=== PATIENT | male | born 1980 ===

== ENCOUNTER 2017-05-27 18:03 | Emergency (ER) | payer BC ==
[2017-05-27 18:10] VITALS: BP 113/76
[2017-05-27] MEDS ORDERED: Ibuprofen TAB* 600 MG PO ONE (18:19)
[2017-05-27] MEDS ORDERED: Tetan/Diph/Pertus SYR(Tdap)* 0.5 ML SYR(BOOSTRIX) use SYR IM ONE (18:19)
--- NOTE | 2017-05-27 18:24 | UC ---
Laceration HPI - HPI Summary HPI Summary: Patient was hit with a chainsaw on the front of the left knee. large laceration sccross the patella, small puncture wound in medial quad - History Of Current Complaint Chief Complaint: UCLaceration Stated Complaint: LEG LACERATION Time Seen by Provider: 05/27/17 18:17 Hx Obtained From: Patient Laceration Location: Knee Mechanism Of Injury: Sharp Trauma Onset/Duration: Sudden Onset, Lasting Hours Severity: Severe - Allergies/Home Medications Allergies/Adverse Reactions: Allergies Allergy/AdvReac Type Severity Reaction Status Date / Time No Known Allergies Allergy Verified 05/27/17 18:10 PMH/Surg Hx/FS Hx/Imm Hx Previously Healthy: Yes - Surgical History Surgical History: None - Family History Known Family History: Negative: Cardiac Disease, Hypertension - Social History Alcohol Use: Occasionally Substance Use Type: None Smoking Status (MU): Never Smoked Tobacco - Immunization History Most Recent Tetanus Shot: UNKNOWN Review of Systems Constitutional: Negative Skin: Other - laceration Eyes: Negative ENT: Negative Respiratory: Negative Cardiovascular: Negative Gastrointestinal: Negative Genitourinary: Negative Motor: Negative Neurovascular: Negative Musculoskeletal: Negative Neurological: Negative Psychological: Negative All Other Systems Reviewed And Are Negative: Yes Physical Exam Triage Information Reviewed: Yes Appearance: Well-Nourished, Ill-Appearing, Pain Distress Vital Signs: Initial Vital Signs Temp 98.7 F 05/27/17 18:07 Pulse 85 05/27/17 18:07 Resp 16 05/27/17 18:07 BP 113/76 05/27/17 18:07 Pulse Ox 98 05/27/17 18:07 Vital Signs Reviewed: Yes Eye Exam: Normal ENT Exam: Normal Dental Exam: Normal Neck exam: Normal Respiratory Exam: Normal Cardiovascular Exam: Normal Abdominal Exam: Normal Musculoskeletal: Positive: Strength Intact, No Edema, ROM Limited @ - due to pain Neurological Exam: Normal Neurological: Positive: Alert, Muscle Tone Normal Psychological Exam: Normal Skin: Positive: Other - 7 cm laceration, multipl small unctures medial to laceration Laceration Repair - Laceration Repair 1 Description: Irregular Laceration Size After Repair: Length (cm) - 7 irregular in shape , complesx lac , edges trimmed Modified For Repair: Yes - edges cleaned up Type Injection: Local Anesthesia Used: 2.0% Lido Additive Used (in ml): Epi Cleansing Completed Via Routine Prep: Yes Irrigation With Pressure Irrigation Device: Yes Closure Material: Skin Adhesive - used on the small avulsions,, SteriStrips - used to reinforce the lac, Sutures - 21 - 3 absorbale Closure Method: Multilayer Suture Of: Skin Suture Type: Nylon Laceration Course/Dx - Course/Dx Course Of Treatment: hx obtained, exam performed, meds reviewed, tetanus given, xray of knee, ibuprofen given - Differential Dx - Laceration/Wound Differental Diagnoses: Laceration Provider Diagnoses: 7 cm complex lac of left knee. multiple small avulsion wounds left knee Discharge - Discharge Plan Condition: Stable Disposition: HOME Prescriptions: Cephalexin [Keflex 750 MG] 750 mg PO BID #14 cap Patient Education Materials: Care For Your Stitches (ED), Laceration (ED) Referrals: Murtaza Braswell MD [Primary Care Provider] - Additional Instructions: take the medication as prescribed. Follow up in 10 days for removal If you develope any increase in swelling, pain, redness, fever, unusual drainage follow up immediately., the knee is to stay immobilized for the next 3-4 days.
--- NOTE | 2017-05-27 18:45 | RAD ---
HISTORY: Laceration to left knee COMPARISONS: September 19, 2012 VIEWS: 2, Frontal and lateral views of the left knee FINDINGS: BONE DENSITY: Normal. BONES: There is no displaced fracture. JOINTS: There is no arthropathy. There is no suprapatellar joint effusion or lipohemarthrosis. ALIGNMENT: There is no dislocation. SOFT TISSUES: There is soft tissue irregularity of the prepatellar soft tissues consistent with the history of penetrating trauma. OTHER FINDINGS: None. IMPRESSION: NO ACUTE OSSEOUS INJURY. IF SYMPTOMS PERSIST, RECOMMEND REPEAT IMAGING.
[2017-05-27] MEDS ORDERED: Lidocaine 2% W/EPI 1:100,000* 20 ML MDV INJ ONE (19:00)
[2017-05-27] MEDS ORDERED: Cephalexin CAP* 250 MG PO ONE (19:56)
[2017-05-27] MEDS ORDERED: Cephalexin CAP* 500 MG PO ONE (19:56)
== END 2017-05-27 20:21 | disposition home or self-care (01) ==
LOC: UCEAST 18:03
DX: S81.012A Laceration without foreign body, left knee, initial encounter (principal); W29.3XXA Contact with powered garden and outdoor hand tools and machinery, initial encounter
CPT/HCPCS: 13121; 90471; 90715; 99202; 99203; A9270-GY; G0463

== ENCOUNTER 2017-06-07 12:52 | Emergency (ER) | payer BC ==
[2017-06-07 13:28] VITALS: BP 111/66
--- NOTE | 2017-06-07 14:01 | UC ---
HPI Wound/Suture Re-check - HPI Summary HPI Summary: 36 YOU MALE 10 DAYS S/P LAC REPAIR LEFT KNEE NO COMPLAINTS - History Of Current Complaint Chief Complaint: UCWounds Stated Complaint: SUTURE REMOVAL Time Seen by Provider: 06/07/17 13:47 Hx Obtained From: Patient Onset/Duration: Sudden Onset Severity: Mild Pain Intensity: 3 Pain Scale Used: 0-10 Numeric - Allergies/Home Medications Allergies/Adverse Reactions: Allergies Allergy/AdvReac Type Severity Reaction Status Date / Time No Known Allergies Allergy Verified 06/07/17 13:27 PMH/Surg Hx/FS Hx/Imm Hx Previously Healthy: Yes - Surgical History Surgical History: None - Family History Known Family History: Negative: Cardiac Disease, Hypertension - Social History Alcohol Use: Occasionally Substance Use Type: None Smoking Status (MU): Never Smoked Tobacco - Immunization History Most Recent Tetanus Shot: UNKNOWN Review of Systems Constitutional: Negative Skin: Negative Eyes: Negative ENT: Negative Respiratory: Negative Cardiovascular: Negative Gastrointestinal: Negative Genitourinary: Negative Motor: Negative Neurovascular: Negative Musculoskeletal: Negative Neurological: Negative Psychological: Negative All Other Systems Reviewed And Are Negative: Yes Physical Exam Triage Information Reviewed: Yes Appearance: Well-Appearing, No Pain Distress, Well-Nourished Vital Signs: Initial Vital Signs Temp 98.3 F 06/07/17 13:23 Pulse 56 06/07/17 13:23 Resp 18 06/07/17 13:23 BP 111/66 06/07/17 13:23 Pulse Ox 100 06/07/17 13:23 Vital Signs Reviewed: Yes Eyes: Positive: Conjunctiva Clear ENT: Positive: Hearing grossly normal. Negative: Nasal congestion, Nasal drainage, Trismus, Muffled/hoarse voice Neck: Positive: Supple, Nontender, No Lymphadenopathy Respiratory: Positive: Lungs clear, Normal breath sounds, No respiratory distress, No accessory muscle use Cardiovascular: Positive: RRR, No Murmur Neurological: Positive: Alert Psychological Exam: Normal Skin: Positive: Other - KNEE LAC HEALING WELL Course/Dx - Differential Dx - Laceration/Wound Provider Diagnoses: RECHECK LEFT KNEE LAC Discharge - Discharge Plan Condition: Stable Disposition: HOME Patient Education Materials: Care For Your Stitches (ED) Referrals: Murtaza Braswell MD [Primary Care Provider] - Additional Instructions: I THINK IT WOULD BE PREMATURE TO TAKE YOUR STITCHES OUT TODAY RECHECK IN 4-5 DAYS GENTLY CLEAN TWICE DAILY APPLY A THIN FILM OR AQUAPHOR HEALING OINTMENT OR POLYSPORIN
== END 2017-06-07 14:10 | disposition home or self-care (01) ==
LOC: UCEAST 12:52
DX: Z51.89 Encounter for other specified aftercare (principal); S81.012D Laceration without foreign body, left knee, subsequent encounter
CPT/HCPCS: 99211; G0463

== ENCOUNTER 2017-06-20 14:45 | Emergency (ER) | payer BC ==
[2017-06-20 15:53] VITALS: BP 113/69
--- NOTE | 2017-06-20 16:14 | UC ---
HPI Wound/Suture Re-check - HPI Summary HPI Summary: here for suture removal place in knee approx 3 weeks ago no drainage or pain - History Of Current Complaint Chief Complaint: UCWounds Stated Complaint: STITCHES REMOVED Time Seen by Provider: 06/20/17 15:58 Hx Obtained From: Patient - Allergies/Home Medications Allergies/Adverse Reactions: Allergies Allergy/AdvReac Type Severity Reaction Status Date / Time No Known Allergies Allergy Verified 06/20/17 15:53 Home Medications: Home Medications NK [No Home Medications Reported] 06/20/17 [History Confirmed 06/20/17] PMH/Surg Hx/FS Hx/Imm Hx Previously Healthy: Yes - Surgical History Surgical History: None - Family History Known Family History: Negative: Cardiac Disease, Hypertension, Diabetes - Social History Occupation: Employed Full-time Lives: With Family Alcohol Use: Occasionally Substance Use Type: None Smoking Status (MU): Never Smoked Tobacco - Immunization History Most Recent Tetanus Shot: 05/28/17 Review of Systems Constitutional: Negative Skin: Other - laceration Eyes: Negative ENT: Negative Respiratory: Negative Cardiovascular: Negative Gastrointestinal: Negative Genitourinary: Negative Motor: Negative Neurovascular: Negative Musculoskeletal: Negative Neurological: Negative Psychological: Negative All Other Systems Reviewed And Are Negative: Yes Physical Exam Triage Information Reviewed: Yes Appearance: No Pain Distress, Well-Nourished Vital Signs: Initial Vital Signs Temp 98.5 F 06/20/17 15:50 Pulse 63 06/20/17 15:50 Resp 16 06/20/17 15:50 BP 113/69 06/20/17 15:50 Vital Signs Reviewed: Yes Eyes: Positive: Conjunctiva Clear Respiratory: Positive: Lungs clear, Normal breath sounds, No respiratory distress, No accessory muscle use Cardiovascular: Positive: RRR, No Murmur, Pulses Normal Neurological: Positive: Alert Psychological Exam: Normal Skin Exam: Other - left knee- healed laceration Procedures - Procedure Summary Procedure Summary: left knee suture removal- edges well approximated no edema or erythema surrounding wound Course/Dx - Differential Dx - Laceration/Wound Differential Diagnoses: Suture Removal Provider Diagnoses: suture removal left knee Discharge - Discharge Plan Condition: Stable Disposition: HOME Patient Education Materials: Steristrips (ED) Referrals: Murtaza Braswell MD [Primary Care Provider] - [facility] [place] [facility] [place]] Additional Instructions: Increase fluids and rest Take acetaminophen or ibuprofen for fever or pain Please review your discharge instructions. If your symptoms do not improve please call your primary care provider or return to urgent care.
== END 2017-06-20 16:27 | disposition home or self-care (01) ==
LOC: UCEAST 14:45
DX: S81.012D Laceration without foreign body, left knee, subsequent encounter (principal); W45.8XXD Other foreign body or object entering through skin, subsequent encounter; Y92.9 Unspecified place or not applicable